=== PATIENT | female | born 1950 | race Caucasian/White ===

== ENCOUNTER 2019-12-12 07:10 | Outpatient (CLI) | payer OTHER, MEDICARE, SELFPAY ==
[2019-12-12 08:53] LABS: Basophils % 0.7 %; Eosinophils # 0.2 10^3/uL (0.0-0.8); Eosinophils % 4.6 %; Hematocrit 40.2 % (37.0-47.0); Hemoglobin 13.2 g/dL (11.5-15.3); Lymphocytes # 0.7 10^3/uL (0.8-4.8); Lymphocytes % 14.9 %; Mean Corpuscular HGB Conc 32.8 g/dL (30.0-36.0); Mean Corpuscular Hemoglobin 31.6 pg (28.0-34.0); Mean Corpuscular Volume 96.2 fL (81-99); Monocytes # 0.4 10^3/uL (0.2-0.9); Monocytes % 9.6 %; Neutrophils # 3.2 10^3/uL (1.8-7.7); Nucleated Red Blood Cells % 0 %; Platelet Count 163 10^3/cmm (130-400); Red Blood Count 4.18 10^6/uL (4.1-5.3); Red Cell Distribution Width 12.9 % (12.1-15.1); White Blood Count 4.6 10^3/uL (4.0-10.0)
[2019-12-12 09:19] LABS: Carcinoembryonic Antigen 0.6 ng/mL (0.0-4.7)
[2019-12-12 09:31] LABS: Alanine Aminotransferase 18 U/L (0-33); Albumin Level 4.1 g/dL (3.5-5.2); Alkaline Phosphatase 88 IU/L (35-105); Anion Gap 14.3 (5-19); Aspartate Amino Transferase 20 U/L (0-32); Blood Urea Nitrogen 14 mg/dL (8-23); Calcium 9.9 mg/dL (8.5-10.5); Carbon Dioxide 27 mmol/L (22-29); Chloride 103 mmol/L (98-107); Globulin 3.3 g/dL (1.3-4.6); Glomerular Filtration Rate 62.5 mL/min (90-130); Glucose 93 mg/dL (65-115); Potassium 4.3 mmol/L (3.5-5.1); Sodium 140 mmol/L (136-145); Total Bilirubin 0.6 mg/dL (0.15-1.2); Total Protein 7.4 g/dL (6.6-8.7)
[2019-12-12 09:54] LABS: Thyroid Stimulating Hormone 1.88 uIU/mL (0.27-4.20)
== END 2019-12-12 07:11 | disposition home or self-care (01) ==
LOC: ONCMED 07:16
PROVIDERS: Family Provider Nurse Practitioner; Visit Provider Internal Medicine Medical Oncology
DX: C20 Malignant neoplasm of rectum (principal); E03.9 Hypothyroidism, unspecified
CPT/HCPCS: 80053; 82378; 84443; 85025

== ENCOUNTER 2019-12-15 07:05 | Outpatient (CLI) | payer OTHER, MEDICARE, SELFPAY ==
--- NOTE | 2019-12-15 07:17 | CT_ITS ---
WS: [id number] CT CHEST, ABDOMEN, AND PELVIS TECHNIQUE: Noncontrast CT of the chest, abdomen, and pelvis with coronal and sagittal reformatted juliane ges. CLINICAL INFORMATION: RECTAL CANCER COMPARISON: CT chest abdomen pelvis December 12, 2018 DLP: 1439.[address] scans at [facility] use at least one of these dose optimization techniques: automat ed exposure control; mA and/or kV adjustment per patient size (includes targeted exams where dose is matched to clinical indication); or iterative reconstruction. CT CHEST: No mediastinal or hilar lymphadenopathy. No axillary lymphadenopathy. A few tiny noncalcified nodules in the lower lobes. These are unchanged from 2018. No acute pulmonary infiltrates. Normal visualized thoracic spine. CT ABDOMEN AND PELVIS: Prior postoperative changes perineal resection with left lower quadrant colostomy. Stable parastomal hernia. No evidence of obstruction. No evidence of recurrent or progressive disease. Noncontrast liver and gallbladder are normal. Noncontrast spleen is normal. Normal noncontrast pancre as. Adrenal glands are normal. Normal GE junction. No hydronephrosis. Normal caliber abdominal aorta. No periaortic lymphadenopathy. No pelvic or inguinal lymphadenopathy. CT/CT chest abd pel wo con IMPRESSION: 1. No evidence of metastatic disease in the chest abdomen or pelvis. 2. A few tiny noncalcified pulmonary nodules in the lung bases unchanged since 2018 3. Stable postoperative changes left lower quadrant colostomy with parastomal hernia. No evidence of obstruction. 4. Lungs are well aerated. No acute pulmonary infiltrates. 5. No mediastinal or hilar lymphadenopathy.
[2019-12-15] MEDS: iohexol 300 mg/mL 50 mL Btl PO (07:20)
== END 2019-12-15 07:06 | disposition home or self-care (01) ==
PROVIDERS: Family Provider Nurse Practitioner; PCP Nurse Practitioner; Visit Provider Internal Medicine Medical Oncology
DX: C20 Malignant neoplasm of rectum (principal); R91.8 Other nonspecific abnormal finding of lung field; Z93.3 Colostomy status
CPT/HCPCS: 71250; 74176; Q9967

== ENCOUNTER 2019-12-17 15:43 | Outpatient (CLI) | payer OTHER, MEDICARE, SELFPAY ==
--- NOTE | 2019-12-17 18:23 | ONC FU_ITS ---
Dr. Hanson Patient Follow-Up Note Patient: Eva Luciano Unit #: [id number]: 1950 Dicatated By: Barney Hanson M.D.Date of Visit:Dec 17, 2019 Onc Med Follow-up/Prog Note Chief Complaint: Rectal cancer. 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 She had presented initially with a change in bowel habit. This started with worsening of some pre-existing constipation. She then noticed appearance of blood and/or mucus in the stool intermittently. She underwent colonoscopy on 10/02/2014. She was found to have a large size, circumferential, malignant appearing mass in the rectum. It did not appear to be obstructing the lumen. The report indicated that it was located 15 cm from the anal verge, but Dr. Hutson indicated to me that it appeared to be extending down almost to the anal verge. Biopsy was consistent with low-grade (grade 2/4) infiltrating adenocarcinoma. CT abdomen/pelvis showed no definite colon mass. There was very minimal asymmetry of the rectum with the left rectal wall noted to be slightly more prominent than the right. There was no abnormal lymphadenopathy or other evidence of metastatic disease. She had seen Dr. Gerard in September 2014. He noted a left anterior anal canal mass in close proximity but not contiguous with a large dominant mass in the right anterior location. He did feel that the smaller lesion was probably a satellite. He also felt clinically that this was almost certainly a T3 primary lesion. He did recommend preoperative chemoradiation. After returning here she did complete additional staging with MRI of the pelvis. It was really unremarkable with no evidence of any mass or extension of tissue beyond the normal rectum. There were no abnormally enlarged lymph nodes. She also underwent an exam under anesthesia by Dr. Cross, which did show a satellite lesion extending into the anal canal, confirmed by biopsy to be well differentiated adenocarcinoma. By clinical evaluation her disease was felt to be stage IIA (T3, N0, M0). She was given neoadjuvant chemoradiation utilizing Xeloda for the chemosensitization. She completed treatment on 12/03/14. The total dose appears to have calculated to 5220 cGy. Her initial surgery, on 01/21/15, was limited to transanal excision, as it appeared clinically that she had responded very well to the chemoradiation. However, pathology showed a significant area of residual tumor measuring approximately 2 cm. Carcinoma was noted to extend through the muscularis propria and into the perirectal fat. There was a viable invasive carcinoma 0.6 mm from the proximal margin and 2 mm from the distal margin. Additional lateral margins were noted to be free, and the mesenteric margin was free by 1.4 mm. There was felt to be a moderate treatment response (tumor regression grade 1). Excisional biopsy from the anal canal showed no viable malignant cells. On 04/01/2015 she underwent AP resection. Pathology showed a single area of residual adenocarcinoma measuring 2 mm. There was involvement, though, in 2 of 11 lymph nodes. She was then given postoperative adjuvant chemotherapy with modified FOLFOX. Cycle 1 started on 05/25/15. By day 14 she was severely neutropenic, and she was treated with Neupogen. She had a rapid recovery, but cycle 2 was delayed as a result of that. With the second cycle, she did require a dose reduction in the oxaliplatin because of neuropathy. She again became neutropenic, and cycle 3 also was delayed 1 week. With cycle 4 she did receive an additional dose reduction in the oxaliplatin due to worsening neuropathy, and it was opted to drop the oxaliplatin beginning with cycle 7. Her cycle 8 treatment was delayed 1 week due to a significant drop in her platelet count. She received her final cycle of chemotherapy on 09/22/2015. She has since then been followed on observation/expectant management. She had negative surveillance colonoscopy with Dr. Gerard in 2016. Her medical history is otherwise significant for mitral valve prolapse. Her records indicated that she also had hyperlipidemia, but she has not been on any medication for it. During follow-up she has had evidence of mild hypothyroidism. She is a nonsmoker. INTERIM HISTORY: Surveillance CT scans of the chest, abdomen, and pelvis on 05/25/2017 showed no evidence of neoplastic process. She was noted to have a peristomal herniation of the sigmoid colon, but unchanged compared to the study from November 2016. Repeat surveillance CT scans on 11/26/2017 were stable with no evidence of metastatic or recurrent neoplastic process. Follow-up CT of the chest, abdomen, and pelvis without contrast (due to contrast allergy) on 06/12/2018 reported stable appearance of the chest with no new or enlarging pulmonary nodules and no adenopathy. The unenhanced imaging of the abdomen/pelvis was negative for adenopathy, ascites, or metastatic disease. 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 There was no evidence for metastatic disease to the chest, abdomen, or pelvis. She continued on observation/expectant management. Her surveillance CT scans on 12/15/2019 showed no evidence of metastatic disease in the chest, abdomen, or pelvis. A few tiny noncalcified pulmonary nodules in the lung bases appeared unchanged. Postoperative changes including left lower quadrant colostomy with parastomal hernia also appeared stable. She is seen for a follow-up visit. She has been feeling good generally. She continues to work full-time. She does feel tired in the evenings, but she has normal activity. Her appetite is good. She does have some degree of early satiety. She has gained a little weight. She does not have fever, night sweats, or hot flashes. She has sinus drainage and she occasionally has cough. She does not complain of shortness of breath or chest pain. She has no GI/ complaints other than occasional acid reflux. She has no significant joint or bone pain. She occasionally has headache and she occasionally feels lightheaded. She still has a little bit of numbness/tingling in her feet. Medications: Imodium A-D (2 mg) Tablet Oral PRN, Levothyroxine Sodium 1 Tablet (of 50 mcg) Oral daily, Propranolol HCl 1 (40 mg) Tablet Oral b.i.d. Allergies: Contrast Dye Review of Systems: Constitutional - Her energy is good. 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 She has normal activity. Her appetite is good and her weight is up since her last visit. No fever, chills, hot flashes, or night sweats. ECOG score is 0, ENMT - She has sinus congestion/drainage. No mouth sores. No sore throat or difficulty swallowing, Hematologic/Lymphatic - No abnormal bruising or bleeding, Respiratory - No shortness of breath. She has an occasional cough. No pleuritic pain or hemoptysis, Cardiovascular - No angina pain. No palpitations, Gastrointestinal - No nausea or vomiting. She has occasional heartburn, depending on what she eats. She has occasional loose stools. No blood in the stool or black stools, Genitourinary (F) - No dysuria or hematuria. No urinary frequency. No urgency or incontinence, Musculoskeletal - No joint or bone pain, Integumentary - No skin complications, Neurologic - She has occasional headaches. She sometimes gets dizzy. She has a little residual tingling in her feet, Psychiatric - No anxiety or depression. No insomnia. Vital Signs: Performed on Dec 17, 2019 15:53 Height - 66.00 in Weight - 175.6 lbs (HIGH) BSA - 1.89 sq.m BMI - 28.34 Temperature - 97.6 F (LOW) Pulse - 51 /min (LOW) Respiration - 16 /min BP - 134/70 mm(hg) O2 Sat - 98 % Pain - 0 Physical Examination: Constitutional - She looks good generally, Eyes - Sclerae nonicteric. Conjunctivae clear, ENMT - No lesions noted in the oral cavity, Hematologic/Lymphatic - No cervical, clavicular, or axillary adenopathy, Respiratory - Lungs are clear with good air movement bilaterally, Cardiovascular - Heart rhythm is regular. There is no murmur, gallop, or rub noted, Abdomen - Soft. Liver and spleen are not enlarged. There is no abdominal mass or ascites noted and there is no inguinal adenopathy, Extremities - No edema. Pedal pulses are palpable bilaterally, Neurologic - No focal neurologic deficits noted. Lab/Imaging: Test performed on Dec 12, 2019 08:31 Sodium 140 mmol/L TSH 1.88 uIU/mL Potassium 4.3 mmol/L Chloride 103 mmol/L CO2 27 mmol/L Anion Gap 14.3 BUN 14 mg/dL Creatinine 0.9 mg/dL Cr Clearance (Est) 69.5000 mL/min eGFR 62.5 mL/min Glucose 93 mg/dL Calcium 9.9 mg/dL Protein, Total 7.4 g/dL Albumin 4.1 g/dL Globulin 3.3 g/dL Bilirubin, Total 0.6 mg/dL ALT (SGPT) 18 U/L AST (SGOT) 20 U/L Alkaline Phosphatase 88 IU/L WBC 4.6 10 3/uL RBC 4.18 10 6/uL HGB 13.2 g/dL HCT 40.2 % MCV 96.2 fL MCH 31.6 pg MCHC 32.8 g/dL RDW 12.9 % Platelet Count 163 10 3/cmm MPV 10.0 fL Neutrophils 3.2 10 3/uL Lymphocytes 0.7 10 3/uL Monocytes 0.4 10 3/uL Eosinophils 0.2 10 3/uL Basophils 0.0 10 3/uL Neutrophil % 70.0 % Lymphocyte % 14.9 % Monocyte % 9.6 % Eosinophil % 4.6 % Basophils % 0.7 % CEA 0.6 ng/mL Impression: 1. Patient with grade 2/4 infiltrating adenocarcinoma of the rectum, clinically felt to be stage IIA (T3, N0, M0) at initial diagnosis in September 2014. However, there subsequently was biopsy proven satellite involvement in the anal canal. 2. She was given neoadjuvant chemoradiation utilizing Xeloda for the chemosensitization. Treatment was completed on 12/03/2014 to a total radiation dose of 5220 cGy. 3. Her initial surgery, in January 2016, included transanal excision, which did show significant residual tumor estimated at 2 cm. There was transmural invasion and involvement in 2/11 lymph nodes. She then underwent AP resection on 04/01/2015, with residual tumor estimated 2 mm. Final staging was IIIB (ypT3, ypN1, M0). She had a good recovery from the surgery. 4. She then underwent postoperative adjuvant chemotherapy with modified FOLFOX. As of September 2015 she completed 8 cycles of treatment. Toxicities included fatigue, nausea, diarrhea, neuropathy, and myelosuppression. The neuropathy was significant enough to require 2 dose reductions in the oxaliplatin, and I did omit it with cycles 7 and 8. She has been followed on observation/expectant management following completion of the chemotherapy. Her surveillance CT scans have shown evidence of peristomal herniation of a portion of sigmoid colon, but the appearance has been stable. She had a negative surveillance colonoscopy by Dr. Gerard in December 2018. Her current CT scans, from 12/15/2019, show stable findings with no evidence of metastatic disease in the chest, abdomen, or pelvis. During follow-up she has had some mild fatigue, but she has continued to work full-time. She has just mild residual neuropathy in her feet. Overall, she has been doing well clinically with no evidence of recurrence of the rectal cancer. Plan: She remains on observation/expectant management for the rectal cancer. She will be scheduled for a followup visit in 6 months. She will have surveillance CT scans again in 1 year. Signed By: Barney Hanson M.D. <<Signature on File>>
== END 2019-12-17 15:44 | disposition home or self-care (01) ==
LOC: ONCMED 15:43
PROVIDERS: Family Provider Nurse Practitioner; PCP Nurse Practitioner; Visit Provider Internal Medicine Medical Oncology
DX: Z08 Encounter for follow-up examination after completed treatment for malignant neoplasm (principal); Z85.048 Personal history of other malignant neoplasm of rectum, rectosigmoid junction, and anus; G62.0 Drug-induced polyneuropathy; T45.1X5S Adverse effect of antineoplastic and immunosuppressive drugs, sequela; Z92.21 Personal history of antineoplastic chemotherapy; Z92.3 Personal history of irradiation
CPT/HCPCS: G0463

== ENCOUNTER 2020-06-08 14:33 | Outpatient (CLI) | payer OTHER, MEDICARE, SELFPAY ==
--- NOTE | 2020-06-08 15:27 | MM_ITS ---
WS: [id number] BILATERAL SCREENING DIGITAL MAMMOGRAM WITH CAD HISTORY: SCREENING COMPARISON: 06/02/2019 and 05/17/2018 and 01/16/2017 Bilateral CC and MLO views submitted. Computer aided detection analyzed. Breast composition: There are scattered areas of fibroglandular density. No suspicious masses, microc alcifications or architectural distortion. Benign calcifications in each breast. Asymmetry superior L EFT breast has been stable over multiple prior examinations. MM/[id number] IMPRESSION: BI-RADS: 2-Benign FOLLOW UP: 1 Year Follow-up
== END 2020-06-08 14:34 | disposition home or self-care (01) ==
LOC: RADSHAW 14:40
PROVIDERS: PCP Nurse Practitioner; Visit Provider Nurse Practitioner
DX: Z12.31 Encounter for screening mammogram for malignant neoplasm of breast (principal)
CPT/HCPCS: 77067

== ENCOUNTER 2020-06-22 07:16 | Outpatient (CLI) | payer OTHER, MEDICARE, SELFPAY ==
[2020-06-22 07:55] LABS: Eosinophils # 0.5 10^3/uL (0.0-0.8); Eosinophils % 11.3 %; Hematocrit 40.6 % (37.0-47.0); Lymphocytes # 0.6 10^3/uL (0.8-4.8); Lymphocytes % 13.5 %; Mean Corpuscular Hemoglobin 30.4 pg (28.0-34.0); Mean Corpuscular Volume 94.9 fL (81-99); Mean Platelet Volume 10.1 fL (7.4-10.4); Monocytes # 0.3 10^3/uL (0.2-0.9); Monocytes % 7.9 %; Neutrophils # 2.75 10^3/uL (1.8-7.7); Neutrophils % 66.1 %; Nucleated Red Blood Cells % 0 %; Platelet Count 139 10^3/cmm (130-400); Red Blood Count 4.28 10^6/uL (4.1-5.3); Red Cell Distribution Width 13.2 % (12.1-15.1); White Blood Count 4.2 10^3/uL (4.0-10.0)
[2020-06-22 08:23] LABS: Carcinoembryonic Antigen 0.6 ng/mL (0.0-4.7); Thyroid Stimulating Hormone 2.36 uIU/mL (0.27-4.20)
[2020-06-22 08:34] LABS: Alanine Aminotransferase 24 U/L (0-33); Albumin Level 4.4 g/dL (3.5-5.2); Alkaline Phosphatase 88 IU/L (35-105); Anion Gap 18.3 (5-19); Aspartate Amino Transferase 21 U/L (0-32); Blood Urea Nitrogen 14 mg/dL (8-23); Calcium 9.1 mg/dL (8.5-10.5); Carbon Dioxide 21 mmol/L (22-29); Chloride 105 mmol/L (98-107); Globulin 2.9 g/dL (1.3-4.6); Glomerular Filtration Rate 62.5 mL/min (90-130); Glucose 111 mg/dL (65-115); Osmolality Calculated 287 mOsm/kg (285-295); Potassium 4.3 mmol/L (3.5-5.1); Sodium 140 mmol/L (136-145); Total Bilirubin 0.8 mg/dL (0.15-1.2); Total Protein 7.3 g/dL (6.6-8.7)
== END 2020-06-22 07:17 | disposition home or self-care (01) ==
LOC: ONCMED 07:19
PROVIDERS: PCP Nurse Practitioner; Visit Provider Internal Medicine Medical Oncology
DX: C20 Malignant neoplasm of rectum (principal); E03.9 Hypothyroidism, unspecified
CPT/HCPCS: 36415; 80053; 82378; 84443; 85025

== ENCOUNTER 2020-06-23 05:57 | Outpatient (CLI) | payer OTHER, MEDICARE, SELFPAY ==
--- NOTE | 2020-06-24 10:06 | ONC FU_ITS ---
[facility] Patient Note Patient: Eva Luciano Unit #: [id number]: 1950 Dictated By: Emelina ManriqueDate of Visit: Jun 23, 2020 Onc MED Follow-Up/Prog Note Chief Complaint: Rectal cancer. 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 She had presented initially with a change in bowel habit. This started with worsening of some pre-existing constipation. She then noticed appearance of blood and/or mucus in the stool intermittently. She underwent colonoscopy on 10/02/2014. She was found to have a large size, circumferential, malignant appearing mass in the rectum. It did not appear to be obstructing the lumen. The report indicated that it was located 15 cm from the anal verge, but Dr. Hutson indicated to me that it appeared to be extending down almost to the anal verge. Biopsy was consistent with low-grade (grade 2/4) infiltrating adenocarcinoma. CT abdomen/pelvis showed no definite colon mass. There was very minimal asymmetry of the rectum with the left rectal wall noted to be slightly more prominent than the right. There was no abnormal lymphadenopathy or other evidence of metastatic disease. She had seen Dr. Gerard in September 2014. He noted a left anterior anal canal mass in close proximity but not contiguous with a large dominant mass in the right anterior location. He did feel that the smaller lesion was probably a satellite. He also felt clinically that this was almost certainly a T3 primary lesion. He did recommend preoperative chemoradiation. After returning here she did complete additional staging with MRI of the pelvis. It was really unremarkable with no evidence of any mass or extension of tissue beyond the normal rectum. There were no abnormally enlarged lymph nodes. She also underwent an exam under anesthesia by Dr. Cross, which did show a satellite lesion extending into the anal canal, confirmed by biopsy to be well differentiated adenocarcinoma. By clinical evaluation her disease was felt to be stage IIA (T3, N0, M0). She was given neoadjuvant chemoradiation utilizing Xeloda for the chemosensitization. She completed treatment on 12/03/14. The total dose appears to have calculated to 5220 cGy. Her initial surgery, on 01/21/15, was limited to transanal excision, as it appeared clinically that she had responded very well to the chemoradiation. However, pathology showed a significant area of residual tumor measuring approximately 2 cm. Carcinoma was noted to extend through the muscularis propria and into the perirectal fat. There was a viable invasive carcinoma 0.6 mm from the proximal margin and 2 mm from the distal margin. Additional lateral margins were noted to be free, and the mesenteric margin was free by 1.4 mm. There was felt to be a moderate treatment response (tumor regression grade 1). Excisional biopsy from the anal canal showed no viable malignant cells. On 04/01/2015 she underwent AP resection. Pathology showed a single area of residual adenocarcinoma measuring 2 mm. There was involvement, though, in 2 of 11 lymph nodes. She was then given postoperative adjuvant chemotherapy with modified FOLFOX. Cycle 1 started on 05/25/15. By day 14 she was severely neutropenic, and she was treated with Neupogen. She had a rapid recovery, but cycle 2 was delayed as a result of that. With the second cycle, she did require a dose reduction in the oxaliplatin because of neuropathy. She again became neutropenic, and cycle 3 also was delayed 1 week. With cycle 4 she did receive an additional dose reduction in the oxaliplatin due to worsening neuropathy, and it was opted to drop the oxaliplatin beginning with cycle 7. Her cycle 8 treatment was delayed 1 week due to a significant drop in her platelet count. She received her final cycle of chemotherapy on 09/22/2015. She has since then been followed on observation/expectant management. She had negative surveillance colonoscopy with Dr. Gerard in 2016. Her medical history is otherwise significant for mitral valve prolapse. Her records indicated that she also had hyperlipidemia, but she has not been on any medication for it. During follow-up she has had evidence of mild hypothyroidism. She is a nonsmoker. INTERIM HISTORY: Surveillance CT scans of the chest, abdomen, and pelvis on 05/25/2017 showed no evidence of neoplastic process. She was noted to have a peristomal herniation of the sigmoid colon, but unchanged compared to the study from November 2016. Repeat surveillance CT scans on 11/26/2017 were stable with no evidence of metastatic or recurrent neoplastic process. Follow-up CT of the chest, abdomen, and pelvis without contrast (due to contrast allergy) on 06/12/2018 reported stable appearance of the chest with no new or enlarging pulmonary nodules and no adenopathy. The unenhanced imaging of the abdomen/pelvis was negative for adenopathy, ascites, or metastatic disease. 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 There was no evidence for metastatic disease to the chest, abdomen, or pelvis. She continued on observation/expectant management. Her surveillance CT scans on 12/15/2019 showed no evidence of metastatic disease in the chest, abdomen, or pelvis. A few tiny noncalcified pulmonary nodules in the lung bases appeared unchanged. Postoperative changes including left lower quadrant colostomy with parastomal hernia also appeared stable. Ms. Luciano is here today for follow-up. She states she is doing well overall. She is working full-time and tolerates this well. She states she is tired at night and does not do much at home but has no specific complaints. She denies any shortness of breath orthopnea. She denies any chest pain or palpitations. She denies any changes of bowel function. She states her ostomy still is working well. She denies any new pain. She states she has had some intermittent dry skin which presented like circles that looked almost like ringworm when it would dry out . This is essentially resolved using lotion more frequently. She developed 2 spots on her left hand that discounted came out . She states that they are not itchy. She is not sure if they are recent bug bites. They are not draining nor do they look infected. She states she has had some dryness around her eyes especially like in the corner of her eyes. She did talk to her eye doctor regarding this. He advised her to use vitamin E oil sparingly to those areas around her eyes. She has been doing this and states that she does believe it is helping. She states otherwise she is doing well. Her ECOG is 0. Past Medical History: Mitral valve prolapse Past Surgical History: Removal of right subclavian venous access device-Dr Cross [facility] [place] in 2014 Right subclavian venous access device-Dr Chriss Cross in 2014 AP resection with colostomy-MASSIEL Frazier in 2014 in 1978 Allergies: Contrast Dye Medications: Imodium A-D (2 mg) Tablet Oral PRN Levothyroxine Sodium 1 Tablet (of 50 mcg) Oral daily Propranolol HCl 1 (40 mg) Tablet Oral b.i.d. Family History: Ms. Luciano's mother at age 65: medical history includes emphysema/colon cancer at age 65 (cause of ). Ms. Luciano's father at age 73: medical history includes congestive heart failure at age 73 (cause of ). Ms. Luciano has 2 sisters: 2 alive. Father of congestive heart failure at age 73. Her mother had severe emphysema and colon cancer. She age 65. She has 2 sisters who are still living. One has rheumatoid arthritis. Two maternal aunts and a cousin on her mother side all had breast cancer and are . 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 Ms. Luciano has never smoked. She has no history of drinking. Review Of Symptoms: Constitutional Denies fevers, chills, night sweats, excessive fatigue or weight loss. Allergic/Immunologic No reactions. Eyes Denies significant visual changes. No diplopia. No amaurosis. ENMT Denies changes in hearing, sore throat, mouth sores, difficulty or changes in swallowing ability, and/or sinus drainage. Endocrine No diabetes, thyroid disease or hormone replacement. Denies hot flashes. Hematologic/Lymphatic Denies easy bruising or bleeding. The patient denies any tender or palpable lymph nodes. Respiratory Denies dyspnea on exertion, chest pain, cough or hemoptysis. Denies orthopnea. Cardiovascular Denies anginal chest pain, palpitations or orthopnea. Gastrointestinal Denies nausea, vomiting, diarrhea, GI bleeding, or constipation. Denies change in bowel habits and/or stool color, no heartburn or early satiety. No concerns with ostomy. Genitourinary (F) No hematuria, hesitancy, incontinence, vaginal bleeding, discharge or other problems with urination. Musculoskeletal Denies joint pain, swelling or redness. No decreased range of motion. Integumentary Denies chronic rashes, inflammation, ulcerations. She has had some intermittent dry skin patches. Has 2 new areas on her left hand that are of unknown etiology. They are red with a yellow center, but do not itch or burn. No drainage. Neurologic Denies headache, blurred vision, and no areas of focal weakness or numbness. Normal gait. No sensory problems. Psychiatric Denies insomnia, depression, cristian or mood swings. Vital Signs: Performed on Jun 23, 2020 15:21 Height - 66.00 in Weight - 175.6 lbs BSA - 1.89 sq.m BMI - 28.34 Temperature - 97.6 F (LOW) Pulse - 44 /min (LOW) Respiration - 16 /min BP - 124/61 mm(hg) O2 Sat - 100 % Pain - 0,0 - Fully active, able to carry on all predisease activities without restrictions. (ECOG) Physical Examination: Constitutional Alert, oriented, no acute distress. Skin pink, warm and dry. Head Normocephalic; atraumatic. Eyes Conjunctivae and sclerae are clear and without icterus. Pupils are reactive and equal. Neck Supple without masses or thyromegaly. No jugular venous distension. Hematologic/Lymphatic No petechiae or purpura. Respiratory Lungs are clear to auscultation without rhonchi or wheezing. Cardiovascular Regular rate and rhythm of heart without murmurs,clicks, gallops or rubs. Abdomen Non-tender, non-distended, no masses, ascites or hepatosplenomegaly.Good bowel sounds noted in all quads. No guarding or rebound tenderness. No pulsatile masses. Left sided ostomy unremarkable. Back/Spine Non-tender to palpation. Extremities No visible deformities, no cyanosis, clubbing or edema. Musculoskeletal No tenderness or swelling, normal range of motion without obvious weakness. Neurologic No sensory or motor deficits, normal cerebellar function, normal gait. Psychiatric Alert and oriented times three. Coherent speech. Verbalizes understanding of our discussions today. Laboratory:Test performed on Jun 22, 2020 07:42 WBC 4.2 10 3/uL RBC 4.28 10 6/uL HGB 13.0 g/dL HCT 40.6 % MCV 94.9 fL MCH 30.4 pg MCHC 32.0 g/dL RDW 13.2 % Platelet Count 139 10 3/cmm MPV 10.1 fL Neutrophils 2.75 10 3/uL Lymphocytes 0.6 10 3/uL Monocytes 0.3 10 3/uL Eosinophils 0.5 10 3/uL Basophils 0.0 10 3/uL Neutrophil % 66.1 % Lymphocyte % 13.5 % Monocyte % 7.9 % Eosinophil % 11.3 % Basophils % 1.0 % NRBC % 0 % Impression: 1. Patient with grade 2/4 infiltrating adenocarcinoma of the rectum, clinically felt to be stage IIA (T3, N0, M0) at initial diagnosis in September 2014. However, there subsequently was biopsy proven satellite involvement in the anal canal. 2. She was given neoadjuvant chemoradiation utilizing Xeloda for the chemosensitization. Treatment was completed on 12/03/2014 to a total radiation dose of 5220 cGy. 3. Her initial surgery, in January 2016, included transanal excision, which did show significant residual tumor estimated at 2 cm. There was transmural invasion and involvement in 2/11 lymph nodes. She then underwent AP resection on 04/01/2015, with residual tumor estimated 2 mm. Final staging was IIIB (ypT3, ypN1, M0). She had a good recovery from the surgery. 4. She then underwent postoperative adjuvant chemotherapy with modified FOLFOX. As of September 2015 she completed 8 cycles of treatment. Toxicities included fatigue, nausea, diarrhea, neuropathy, and myelosuppression. The neuropathy was significant enough to require 2 dose reductions in the oxaliplatin, and I did omit it with cycles 7 and 8. She has been followed on observation/expectant management following completion of the chemotherapy. Her surveillance CT scans have shown evidence of peristomal herniation of a portion of sigmoid colon, but the appearance has been stable. She had a negative surveillance colonoscopy by Dr. Gerard in December 2018. Her current CT scans, from 12/15/2019, show stable findings with no evidence of metastatic disease in the chest, abdomen, or pelvis. During follow-up she has had some mild fatigue, but she has continued to work full-time. She has just mild residual neuropathy in her feet. Overall, she has been doing well clinically with no evidence of recurrence of the rectal cancer. Plan: 1. She remains on observation/expectant management for the rectal cancer. 2. Labs karina 06/22/2020 were reviewed in detail and discussed with Ms. Luciano and a copy was given to her. WBC 4.2, hemoglobin 13, platelets 239,000 ANC is 2700. Creatinine 0.9 random glucose 111 LFTs are normal. CEA is 0.6 and TSH is 2.36. 3. She was encouraged to continue using lotion as she has for dry skin patches. As far as the lesions on her hand she can try cortisone or Benadryl cream as needed if this does not resolve or that they seem to worsen she can call and we can either send her in a steroid cream or an antibiotic whichever seems to be appropriate depending on her concern. I did offer to have her see dermatology if she feels that she needs it due to the other lesions as well but she states right now she thinks she is doing fine. She is encouraged to call us if she feels that she needs to see the asphalt mixing machine operator to make make that referral. 4. She is planning a trip [place] to see her sister and is excited about this. She will proceed with that trip as scheduled with normal COVID precautions. 5. We will plan to see her back in 6 months with CBC CMP CEA she also have repeat noncontrast CT of the chest abdomen pelvis for her 6-month follow-up. 6. She is advised she can try vitamin E or fish oil for dry skin as well if she needs to. She is drinking an adequate amount of water daily as well. 7. Mrs. Luciano was instructed to contact us in interim should questions or problems arise. ADDENDUM: 8. She has had recent mammography screening per ARMANDO Cruz,. Her bilateral screening mammogram was performed at [facility] [place] on June 08, 2020. Results were BI-RADS: 2???benign follow-up in 1 year. 9. She states that she is due for her follow-up colonoscopy in 2021. She is on her 3-year surveillance plan currently. Signed By: Emelina Manrique-, AOJACKP Barney Hanson MD <<Signature on File>>
== END 2020-06-23 05:58 | disposition home or self-care (01) ==
PROVIDERS: Visit Provider Nurse Practitioner
DX: Z08 Encounter for follow-up examination after completed treatment for malignant neoplasm (principal); Z85.048 Personal history of other malignant neoplasm of rectum, rectosigmoid junction, and anus; Z92.21 Personal history of antineoplastic chemotherapy; Z92.3 Personal history of irradiation
CPT/HCPCS: G0463

== ENCOUNTER 2020-06-29 14:06 | Outpatient (CLI) | payer OTHER, MEDICARE, SELFPAY ==
--- NOTE | 2020-06-29 14:28 | XR_ITS ---
WS: [id number] DEXA (DUAL ENERGY X-RAY ABSORPTIOMETRY) Bone mineral density was performed using a [employer] machine. HISTORY: Asymptomatic MENOPAUSAL STATE COMPARISON: 05/27/2018 Lumbar spine BMD (L1-L4): 1.214 g/cm2 T score: 0.3 Z score: 1.5 Total hip BMD: Left: 1.106 g/cm2. T score: 0.8 Z score: 1.8 Right: 1.135 g/cm2. T score: 1.0 Z score: 2.0 10 year probability of a major osteoporotic fracture is 7%. Compared to the prior study from 05/27/2018. Lumbar spine bone mineral density has decreased by 1.1%. Bilateral hips bone mineral density has increased by 1.4%. XR/XR DEXA axial skeleton* [id number] IMPRESSION: NORMAL BONE MINERAL DENSITY based upon the WHO classification for females. No s ignificant change in bone mineral density since the prior study.
== END 2020-06-29 14:07 | disposition home or self-care (01) ==
LOC: RADWPI 14:12
PROVIDERS: PCP Nurse Practitioner; Visit Provider Nurse Practitioner
DX: Z78.0 Asymptomatic menopausal state (principal)
CPT/HCPCS: 77080

== ENCOUNTER 2020-11-24 07:59 | Outpatient (CLI) | payer OTHER, MEDICARE, SELFPAY ==
--- NOTE | 2020-11-24 08:00 | CT_ITS ---
WS: [id number] CT CHEST, ABDOMEN, AND PELVIS TECHNIQUE: Noncontrast CT of the chest, abdomen, and pelvis with coronal and sagittal reformatted juliane ges. CLINICAL INFORMATION: MALIGNANT NEOPLASM OF THE RECTUM COMPARISON: Multiple prior CTs including December 15, 2019, 2018, May 2018, November 2017, May 2017. DLP: 2210.[address] scans at [facility] use at least one of these dose optimization techniques: automat ed exposure control; mA and/or kV adjustment per patient size (includes targeted exams where dose is matched to clinical indication); or iterative reconstruction. CT CHEST: Both lungs are well aerated. No acute pulmonary infiltrates. Subsegmental atelectasis the lung bases. No mediastinal or hilar lymphadenopathy. No axillary lymphadenopathy. A few tiny noncalcified nodule s in the lower lobes. These are unchanged from 2018. Normal visualized thoracic spine. No evidence of metastatic disease. CT ABDOMEN AND PELVIS: Prior postoperative changes perineal resection for rectal cancer with left lower quadrant colostomy. Stable parastomal hernia. No evidence of obstruction. No evidence of recurrent or progressive disease. Noncontrast liver and gallbladder are normal. Noncon trast spleen is normal. Normal noncontrast pancreas. Adrenal glands are normal. Normal GE junction. N o hydronephrosis. Normal caliber abdominal aorta. No periaortic lymphadenopathy. No pelvic or inguina l lymphadenopathy. Normal lumbar spine. CT/CT chest abd pel wo con IMPRESSION: 1. No evidence of metastatic disease in the chest abdomen or pelvis. 2. A few tiny noncalcified pulmonary nodules in the lung bases are unchanged. 3. Lungs well aerated. No acute pulmonary infiltrates. No mediastinal or hilar lymphadenopathy. 4. Stable postoperative changes left lower quadrant colostomy with parastomal hernia. No evidence of obstruction. No changes from previous.
[2020-11-24] MEDS: iohexol 300 mg/mL 50 mL Btl PO (08:52)
== END 2020-11-24 08:00 | disposition home or self-care (01) ==
LOC: RADWPI 08:07
PROVIDERS: PCP Nurse Practitioner; Visit Provider Nurse Practitioner
DX: C20 Malignant neoplasm of rectum (principal); R91.8 Other nonspecific abnormal finding of lung field
CPT/HCPCS: 71250; 74176; Q9967

== ENCOUNTER 2020-11-25 07:10 | Outpatient (CLI) | payer OTHER, MEDICARE, SELFPAY ==
[2020-11-25 08:37] LABS: Basophils % 0.8 %; Eosinophils # 0.1 10^3/uL (0.0-0.8); Eosinophils % 3.6 %; Hematocrit 39.3 % (37.0-47.0); Hemoglobin 12.9 g/dL (11.5-15.3); Lymphocytes # 0.5 10^3/uL (0.8-4.8); Lymphocytes % 14.4 %; Mean Corpuscular HGB Conc 32.8 g/dL (30.0-36.0); Mean Corpuscular Hemoglobin 30.7 pg (28.0-34.0); Mean Corpuscular Volume 93.6 fL (81-99); Mean Platelet Volume 10.6 fL (7.4-10.4); Monocytes # 0.3 10^3/uL (0.2-0.9); Monocytes % 7.5 %; Neutrophils # 2.65 10^3/uL (1.8-7.7); Neutrophils % 73.4 %; Nucleated Red Blood Cells % 0 %; Platelet Count 146 10^3/cmm (130-400); Red Cell Distribution Width 12.9 % (12.1-15.1); White Blood Count 3.6 10^3/uL (4.0-10.0)
[2020-11-25 09:05] LABS: Alanine Aminotransferase 19 U/L (0-33); Albumin Level 4.2 g/dL (3.5-5.2); Alkaline Phosphatase 98 IU/L (35-105); Anion Gap 11.6 (5-19); Aspartate Amino Transferase 19 U/L (0-32); Blood Urea Nitrogen 15 mg/dL (8-23); Calcium 9.4 mg/dL (8.5-10.5); Carbon Dioxide 29 mmol/L (22-29); Chloride 102 mmol/L (98-107); Glomerular Filtration Rate 71.3 mL/min (90-130); Glucose 93 mg/dL (65-115); Osmolality Calculated 289 mOsm/kg (285-295); Potassium 3.6 mmol/L (3.5-5.1); Sodium 139 mmol/L (136-145); Total Bilirubin 0.6 mg/dL (0.15-1.2); Total Protein 7.2 g/dL (6.6-8.7)
[2020-11-25 11:45] LABS: Carcinoembryonic Antigen 0.7 ng/mL (0.0-4.7)
--- NOTE | 2020-11-27 18:14 | ONC FU_ITS ---
Dr. Hanson Patient Follow-Up Note Patient: Eva Luciano Unit #: [id number]: 1950 Dicatated By: Barney Hanson M.D.Date of Visit:Nov 25, 2020 Onc Med Follow-up/Prog Note Chief Complaint: Rectal cancer. 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 She had presented initially with a change in bowel habit. This started with worsening of some pre-existing constipation. She then noticed appearance of blood and/or mucus in the stool intermittently. She underwent colonoscopy on 10/02/2014. She was found to have a large size, circumferential, malignant appearing mass in the rectum. It did not appear to be obstructing the lumen. The report indicated that it was located 15 cm from the anal verge, but Dr. Hutson indicated to me that it appeared to be extending down almost to the anal verge. Biopsy was consistent with low-grade (grade 2/4) infiltrating adenocarcinoma. CT abdomen/pelvis showed no definite colon mass. There was very minimal asymmetry of the rectum with the left rectal wall noted to be slightly more prominent than the right. There was no abnormal lymphadenopathy or other evidence of metastatic disease. She had seen Dr. Gerard in September 2014. He noted a left anterior anal canal mass in close proximity but not contiguous with a large dominant mass in the right anterior location. He did feel that the smaller lesion was probably a satellite. He also felt clinically that this was almost certainly a T3 primary lesion. He did recommend preoperative chemoradiation. After returning here she did complete additional staging with MRI of the pelvis. It was really unremarkable with no evidence of any mass or extension of tissue beyond the normal rectum. There were no abnormally enlarged lymph nodes. She also underwent an exam under anesthesia by Dr. Cross, which did show a satellite lesion extending into the anal canal, confirmed by biopsy to be well differentiated adenocarcinoma. By clinical evaluation her disease was felt to be stage IIA (T3, N0, M0). She was given neoadjuvant chemoradiation utilizing Xeloda for the chemosensitization. She completed treatment on 12/03/14. The total dose appears to have calculated to 5220 cGy. Her initial surgery, on 01/21/15, was limited to transanal excision, as it appeared clinically that she had responded very well to the chemoradiation. However, pathology showed a significant area of residual tumor measuring approximately 2 cm. Carcinoma was noted to extend through the muscularis propria and into the perirectal fat. There was a viable invasive carcinoma 0.6 mm from the proximal margin and 2 mm from the distal margin. Additional lateral margins were noted to be free, and the mesenteric margin was free by 1.4 mm. There was felt to be a moderate treatment response (tumor regression grade 1). Excisional biopsy from the anal canal showed no viable malignant cells. On 04/01/2015 she underwent AP resection. Pathology showed a single area of residual adenocarcinoma measuring 2 mm. There was involvement, though, in 2 of 11 lymph nodes. She was then given postoperative adjuvant chemotherapy with modified FOLFOX. Cycle 1 started on 05/25/15. By day 14 she was severely neutropenic, and she was treated with Neupogen. She had a rapid recovery, but cycle 2 was delayed as a result of that. With the second cycle, she did require a dose reduction in the oxaliplatin because of neuropathy. She again became neutropenic, and cycle 3 also was delayed 1 week. With cycle 4 she did receive an additional dose reduction in the oxaliplatin due to worsening neuropathy, and it was opted to drop the oxaliplatin beginning with cycle 7. Her cycle 8 treatment was delayed 1 week due to a significant drop in her platelet count. She received her final cycle of chemotherapy on 09/22/2015. She was then followed on observation/expectant management. She had negative surveillance colonoscopy with Dr. Gerard in 2015. During subsequent follow-up there was no evidence of recurrent or metastatic disease on her yearly surveillance CT scans in 2016, 2017, 2018, and 2019. She had a negative surveillance colonoscopy again in December 2018. Her medical history is otherwise significant for mitral valve prolapse. Her records indicated that she also had hyperlipidemia, but she has not been on any medication for it. During follow-up she has had evidence of mild hypothyroidism. She is a nonsmoker. INTERIM HISTORY: Surveillance CT scans on 11/24/2020 showed no evidence of metastatic disease in the chest, abdomen, or pelvis. A few tiny noncalcified pulmonary nodules in the lung bases appeared unchanged. She is seen for a follow-up visit. She has been feeling good generally. She says she is still tired by the end of the day, but she has normal activity. Appetite is good. She has not had fever or night sweats. She has occasional hot flashes. She has no shortness of breath, cough, or chest pain. She still has occasional diarrhea. She has no other GI or complaints. She has no significant joint or bone pain. She has a little residual neuropathy in her feet. Medications: Imodium A-D (2 mg) Tablet Oral PRN, Levothyroxine Sodium 1 Tablet (of 50 mcg) Oral daily, Propranolol HCl 1 (40 mg) Tablet Oral b.i.d. Allergies: Contrast Dye Vital Signs: Performed on Nov 25, 2020 15:03 Height - 66.00 in Weight - 179 lbs (HIGH) BSA - 1.91 sq.m BMI - 28.89 Temperature - 97.2 F (LOW) Pulse - 54 /min (LOW) Respiration - 16 /min BP - 134/72 mm(hg) O2 Sat - 96 % Pain - 0 Physical Examination: Constitutional - She looks good generally, Eyes - Sclerae nonicteric. Conjunctivae clear, ENMT - No lesions noted in the oral cavity, Hematologic/Lymphatic - No cervical, clavicular, or axillary adenopathy, Respiratory - Lungs are clear with good air movement bilaterally, Cardiovascular - Heart rhythm is regular. There is no murmur, gallop, or rub noted, Abdomen - Soft. Liver and spleen are not enlarged. There is no abdominal mass or ascites noted and there is no inguinal adenopathy, Extremities - No edema, Neurologic - No focal neurologic deficits noted. Lab/Imaging: Test performed on Nov 25, 2020 07:22 Sodium 139 mmol/L TSH 2.50 uIU/mL Potassium 3.6 mmol/L Chloride 102 mmol/L CO2 29 mmol/L Anion Gap 11.6 BUN 15 mg/dL Creatinine 0.8 mg/dL Cr Clearance (Est) 86.27 mL/min eGFR 71.3 mL/min Glucose 93 mg/dL Osmolality - Calculated 289 mOsm/kg Calcium 9.4 mg/dL Protein, Total 7.2 g/dL Albumin 4.2 g/dL Globulin 3.0 g/dL Bilirubin, Total 0.6 mg/dL ALT (SGPT) 19 U/L AST (SGOT) 19 U/L Alkaline Phosphatase 98 IU/L WBC 3.6 10 3/uL RBC 4.20 10 6/uL HGB 12.9 g/dL HCT 39.3 % MCV 93.6 fL MCH 30.7 pg MCHC 32.8 g/dL RDW 12.9 % Platelet Count 146 10 3/cmm MPV 10.6 fL Neutrophils 2.65 10 3/uL Lymphocytes 0.5 10 3/uL Monocytes 0.3 10 3/uL Eosinophils 0.1 10 3/uL Basophils 0.0 10 3/uL Neutrophil % 73.4 % Lymphocyte % 14.4 % Monocyte % 7.5 % Eosinophil % 3.6 % Basophils % 0.8 % NRBC % 0 % CEA 0.7 ng/mL Problem List: 1. Grade 2/4 infiltrating adenocarcinoma of the rectum, clinically felt to be stage IIA (T3, N0, M0) at initial diagnosis in September 2014. However, there subsequently was biopsy proven satellite involvement in the anal canal. 2. Hyperlipidemia, not requiring medication. 3. Hypothyroidism. Problems Addressed with this Encounter and Plan: Grade 2/4 infiltrating adenocarcinoma of the rectum, clinically felt to be stage IIA (T3, N0, M0) at initial diagnosis in September 2014. However, there subsequently was biopsy proven satellite involvement in the anal canal. She was given neoadjuvant chemoradiation utilizing Xeloda for the chemosensitization. Treatment was completed on 12/03/2014 to a total radiation dose of 5220 cGy. Her transanal excision in January 2015 showed significant residual tumor estimated at 2 cm. There was transmural invasion and involvement in 2/11 lymph nodes. She then underwent AP resection on 04/01/2015, with residual tumor estimated 2 mm. Final staging was IIIB (ypT3, ypN1, M0). She had a good recovery from the surgery. She then underwent postoperative adjuvant chemotherapy with modified FOLFOX. As of September 2015 she completed 8 cycles of treatment. Toxicities included fatigue, nausea, diarrhea, neuropathy, and myelosuppression. The neuropathy was significant enough to require 2 dose reductions in the oxaliplatin, and it was omitted with cycles 7 and 8. She has since then been followed on observation/expectant management. Her follow-up has included negative surveillance colonoscopies in 2015 and in December 2018 and there also has been no evidence of metastatic disease on yearly surveillance CT scans. At this point she has some mild residual fatigue and mild residual neuropathy. Overall, she appears to be doing well clinically. She is now 5 years out from completion of treatment with no evidence of recurrence. She will continue her regular follow-up with De[facility] Fam. She should have surveillance colonoscopy again next year, then at a 5-year interval. She should not require any further routine surveillance CT scans. I will plan to see her again only as needed. Signed By: Barney Hanson M.D. <<Signature on File>>
== END 2020-11-25 07:11 | disposition home or self-care (01) ==
LOC: ONCMED 07:15
PROVIDERS: PCP Nurse Practitioner; Visit Provider Internal Medicine Medical Oncology
DX: Z08 Encounter for follow-up examination after completed treatment for malignant neoplasm (principal); Z85.040 Personal history of malignant carcinoid tumor of rectum; E78.5 Hyperlipidemia, unspecified; E03.9 Hypothyroidism, unspecified; Z92.21 Personal history of antineoplastic chemotherapy; Z79.899 Other long term (current) drug therapy
CPT/HCPCS: 36415; 80053; 82378; 84443; 85025; 99214

== ENCOUNTER 2021-07-12 14:39 | Outpatient (CLI) | payer OTHER, MEDICARE, SELFPAY ==
--- NOTE | 2021-07-12 15:02 | MM_ITS ---
WS: [id number] BILATERAL SCREENING DIGITAL MAMMOGRAM WITH CAD HISTORY: SCREENING COMPARISON: 06/08/2020 and 06/02/2019 Bilateral CC and MLO views submitted. Computer aided detection analyzed. Breast composition: There are scattered areas of fibroglandular density. No suspicious masses, microc alcifications or architectural distortion. Benign calcifications in each breast. MM/[id number] IMPRESSION: BI-RADS: 2-Benign FOLLOW UP: 1 Year Follow-up
== END 2021-07-12 14:40 | disposition home or self-care (01) ==
LOC: RADSHAW 14:48
PROVIDERS: PCP Nurse Practitioner; Visit Provider Nurse Practitioner
DX: Z12.31 Encounter for screening mammogram for malignant neoplasm of breast (principal)
CPT/HCPCS: 77067

== ENCOUNTER 2022-06-27 12:25 | Emergency (ER) | payer OTHER, MEDICARE, SELFPAY ==
[2022-06-27 12:31] VITALS: BP 137/70; PULSE 67; RESP 14; TEMP 36.8; O2SAT 96
--- NOTE | 2022-06-27 12:46 | ED_ITS ---
HPI - Abdominal Pain General: Chief Complaint: Abdominal Pain Stated Complaint: urinating blood Time Seen by Provider: 06/27/22 12:40 Source: patient Mode of arrival: ambulatory History of Present Illness: 71-year-old female with history of rectal CA presents to the emergency room with complaints of painless hematochezia from the colostomy. Began overnight she has had moderate amounts of blood in the colonoscopy bag. Mild abdominal cramping no sharp pain. She denies any dysuria urgency or frequency. She is currently thought to be in remission she is no longer receiving any active treatment she is actually due to have a colonoscopy soon. She is not on any anticoagulants. This initially began with diarrhea and then developed into gross hematochezia. MD elicited complaint: abdominal pain Pertinent past history: other (Colorectal CA) Onset (ago): hour(s) Pain Consistency: intermittent Location: Diffuse Severity: mild Quality: cramping Radiation: none Exacerbating factors: bowel movement Relieving factors: nothing Associated Symptoms: Reports bloating, change in stool character, GI cramping, diarrhea, hematochezia, nausea and poor appetite; Denies anorexia, belching, change in bowel habits, chills, coffee ground emesis, constipation, dyspepsia, dysuria, excessive flatus, fever(s), heartburn, hematuria, hematemesis, fecal incontinence, loose stools, melena, syncope and vomiting Review of Systems Const: Denies: fever(s), chills, fatigue or malaise ENMT: Denies: throat pain, ear or mastoid pain, nasal discharge or nasal congestion Card: Denies: chest pain, palpitations, irregular heart rhythm, edema or syncope Resp: Denies: dyspnea, productive cough or non-productive cough GI: Reports: abdominal pain, nausea, diarrhea, bloating, GI cramping, change in stool character and hematochezia; Denies: vomiting, hematemesis, coffee ground emesis, heartburn, constipation, belching, excessive flatus, fecal incontinence, change in bowel habits or melena : Denies: flank pain, difficulty voiding, dysuria, urinary frequency, urinary urgency or hematuria Skin/Breast: Denies: rash or pruritus PFSH ED PFSH: Medical History Colorectal cancer Hypothyroid Social History Smoking and tobacco status: never smoked Alcohol intake: never Physical Exam Const: GENERAL APPEARANCE: cooperative and comfortable ORIENTA TION/CONSCIOUSNESS: Yes awake, Yes oriented to person, Yes oriented to place and Yes oriented to time HENMT: COMMON NORMALS: normocephalic, atraumatic and hearing grossly normal bilaterally HEAD & SCALP: normocephalic and atraumatic Lymph: LYMPHATIC: no lymphadenopathy noted and no lymphedema noted Resp: COMMON NORMALS: normal respiratory effort, No retractions, No use of accessory muscles and clear to auscultation bilaterally AUSCULTATION: clear to auscultation bilaterally Cardio: COMMON NORMALS: regular rate, regular rhythm and No murmurs present (Cardio) RATE: regular rate RHYTHM: regular rhythm GI: COMMON NORMALS: No hepatosplenomegaly present AUSCULTATION: Yes normoactive bowel sounds PALPATION: Yes Tenderness to palpation present (GI) (Left side abdomen no guarding or rebound), No Guarding due to palpation present (GI) and Yes No hepatosplenomegaly present OTHER: Parastomal herniation easily reduced. There is moderate amount of blood in the colostomy bag. Extremity: COMMON NORMALS: normal to inspection, capillary refill normal, no clubbing, cyanosis or edema, no calf tenderness and no pedal edema Neuro: SENSORIUM/ORIENTATION: Yes oriented to person, Yes oriented to place a nd Yes oriented to time Skin: COMMON NORMALS: no rashes or lesions noted GENERAL SKIN EXAM: no rashes or lesions noted Course Vital Signs: Vital signs: Vital Signs Temperature 98.3 F 06/27/22 12:31 Pulse Rate 60 06/27/22 15:14 Respiratory Rate 18 06/27/22 15:14 Blood Pressure 138/67 06/27/22 15:14 Pulse Oximetry 97 06/27/22 15:14 Oxygen Delivery Me thod 06/27/22 12:31 MDM - Abdominal Pain Medical Decision Making Labs and imaging reviewed. There is diffuse inflammatory stranding around the colon suspected for his colitis. Is not having significant abdominal pain suspect it is infectious. Started on antibiotics follow-up with primary care hemoglobin is good should recheck hemoglobin within next 2 days with primary care if has significant worsening return to the emergency room. Medical Records I reviewed the patient's medical records. Lab Data I reviewed the patient's lab results. : 06/27/22 13:00 06/27/22 13:00 Labs/Radiology: Radiology Impressions Abdomen/Pelvis CT 06/27/22 12:47 IMPRESSION: 1. Diffuse transmural edema with surrounding inflammatory stranding and sub mucosal enhancement involving the LEFT lower quadrant colonic parastomal hernia. No evidence of high-grade obstruction at the distal colostomy. Findings suspicious for infectious/ inflammatory or ischemic colitis. No pneumatosis or free air. 2. The configuration of the LEFT lower quadrant colostomy with parastomal hernia is otherwise unchanged in appearance since November 24, 2020 3. Normal caliber abdominal aorta. Celiac, SMA and proximal SONIA are patent. 4. Diffuse fatty infiltration liver. 5. No other remarkable changes compared to previous examinations. Discussed with Mook Tan DO at 06/27/2022 2:43 PM. Laboratory Results WBC 8.4 10^3/uL (4.0-10.0) 06/27/22 13:00 RBC 4.48 10^6/uL (4.1-5.3) 06/27/22 13:00 Hgb 14.0 g/dL (11.5-15.3) 06/27/22 13:00 Hct 41.9 % (37.0-47.0) 06/27/22 13:00 MCV 93.5 fl (81-99) 06/27/22 13:00 MCH 31.3 pg (28.0-34.0) 06/27/22 13:00 MCHC 33.4 g/dL (30.0-36.0) 06/27/22 13:00 RDW 13.1 % (12.1-15.1) 06/27/22 13:00 Plt Count 136 10^3/cmm (130-400) 06/27/22 13:00 MPV 9.6 fL (7.4-10.4) 06/27/22 13:00 Neut % (Auto) 81.5 % 06/27/22 13:00 Lymph % (Auto) 8.2 % 06/27/22 13:00 Coke % (Auto) 7.4 % 06/27/22 13:00 Eos % (Auto) 2.3 % 06/27/22 13:00 Baso % (Auto) 0.4 % 06/27/22 13:00 Neut # (Auto) 6.87 10^3/uL (1.8-7.7) 06/27/22 13:00 Lymph # (Auto) 0.7 10^3/uL (0.8-4.8) L 06/27/22 13:00 Coke # (Auto) 0.6 10^3/uL (0.2-0.9) 06/27/22 13:00 Eos # (Auto) 0.2 10^3/uL (0.0-0.8) 06/27/22 13:00 Baso # (Auto) 0.0 10^3/uL (0.0-0.1) 06/27/22 13:00 Nucleated RBC % (auto) 0 % 06/27/22 13:00 Nucleated RBCs # 0.0 /100WBC 06/27/22 13:00 PT 12.80 SECONDS (12.1-14.9) 06/27/22 13:00 INR 0.94 (0.8-1.2) 06/27/22 13:00 APTT 26.9 SECONDS (23.9-36.7) 06/27/22 13:00 Sodium 143 mmol/L (136-145) 06/27/22 13:00 Potassium 4.4 mmol/L (3.5-5.1) 06/27/22 13:00 Chloride 105 mmol/L (98-107) 06/27/22 13:00 Carbon Dioxide 28 mmol/L (22-29) 06/27/22 13:00 Anion Gap 14.4 (5-19) 06/27/22 13:00 BUN 14 mg/dL (8-23) 06/27/22 13:00 Creatinine 0.9 mg/dL (0.5-0.9) 06/27/22 13:00 GFR Calculation 62.1 mL/min (90-130) L 06/27/22 13:00 Glucose 108 mg/dL (65-115) 06/27/22 13:00 Calculated Osmolality 297 mOsm/kg (285-295) H 06/27/22 13:00 Calcium 9.4 mg/dL (8.5-10.5) 06/27/22 13:00 Urine Color Yellow (Yellow) 06/27/22 14:30 Urine Appearance Clear (CLEAR) 06/27/22 14:30 Urine pH 6 (5-7) 06/27/22 14:30 Ur Specific [place] 1.005 (1.005-1.030) 06/27/22 14:30 Urine Protein Neg (Negative) 06/27/22 14:30 Urine Glucose (UA) Norm (Normal) 06/27/22 14:30 Urine Ketones Negative (Negative) 06/27/22 14:30 Urine Blood 2+ (Negative) H 06/27/22 14:30 Urine Nitrate Negative (Negative) 06/27/22 14:30 Urine Bilirubin Neg (Negative) 06/27/22 14:30 Urine Urobilinogen Norm mg/dL (Negative) 06/27/22 14:30 Ur Leukocyte Esterase Negative (Negative) 06/27/22 14:30 Urine RBC 0-4 /hpf (0-2) H 06/27/22 14:30 Urine WBC 5-10 /hpf (0-5) H 06/27/22 14:30 Ur Squamous Epith Cells 0-4 /hpf (0-5) H 06/27/22 14:30 Amorphous Sediment Not Reportable 06/27/22 14:30 Urine Bacteria Trace /hpf (NONE) 06/27/22 14:30 Discharge Plan Discharge Patient Disposition: Home Clinical Impression: Colitis, Hypothyroid, Colorectal cancer, Parastomal hernia Prescriptions: New ciprofloxacin HCl 500 mg tablet 500 mg PO BID Qty: 20 0RF promethazine 25 mg tablet 25 mg PO Q6H PRN (Reason: nausea and vomiting) Qty: 20 0RF No Action propranolol 40 mg tablet 40 mg PO BID levothyroxine 50 mcg tablet 50 mcg PO DAILY loratadine 10 mg Tablet 10 mg PO BEDTIME Discharge Orders: Discharge ED (Routine); Ordered 06/27/22 Ordered By: Mook Tan Referrals: Yaquelin Hutson MD [Primary Care Provider] - Discharge Diet: Clear Liquid Patient Instructions: Opioid Safety Activity Restrictions/Additional Instructions: Recheck hemoglobin tomorrow with your primary care doctor. If bleeding worsens significantly return to the emergency room. Coding Level of Care Code ED [employer] Worker for Luis Manuel Ribeiro
--- NOTE | 2022-06-27 12:47 | CT_ITS ---
WS: [id number] CT ABDOMEN PELVIS TECHNIQUE: Contrast-enhanced CT of the abdomen and pelvis with coronal and sagittal reformatted image s. CLINICAL INFORMATION: abd pain COMPARISON: December 14, 2020 DLP: 643.[address] scans at [facility] use at least one of these dose optimization techniques: automated e xposure control; mA and/or kV adjustment per patient size (includes targeted exams where dose is matc hed to clinical indication); or iterative reconstruction. FINDINGS: Prior postoperative changes LEFT lower quadrant colostomy with parastomal hernia. Postoperative pack es. resection for rectal cancer. Diffuse fatty infiltration liver. Normal gallbladder. Normal portal vein and splenic vein. Normal spleen. Normal GE junction. Normal duodenal C-loop. Urine distended bladder. Subsegmental atelectasis lung bases. Adrenal glands are normal. Normal renal parenchymal enhancement. No hydronephrosis. Normal spleen. Normal caliber abdominal aorta. No periao rtic lymphadenopathy. No inguinal lymphadenopathy. No pelvic lymphadenopathy. Celiac and SMA are beth nt. Diffuse colonic thickening with transmural edema involving the colon segment extending into the olga tomal hernia. No evidence of high-grade obstruction. Findings suspicious for infectious/inflammatory or ischemic colitis. Distal colostomy appears normal and decompressed. Recommend correlation with are a of pain. No drainable fluid collections. Tiny fat-containing umbilical hernia. CT/CT abdomen pelvis w con* [id number] IMPRESSION: 1. Diffuse transmural edema with surrounding inflammatory stranding and sub mu cosal enhancement involving the LEFT lower quadrant colonic parastomal hernia. No evidence of high-grade obstruction at the distal colostomy. Findings suspici ous for infectious/ inflammatory or ischemic colitis. No pneumatosis or free ai r. 2. The configuration of the LEFT lower quadrant colostomy with parastomal megha ia is otherwise unchanged in appearance since November 24, 2020 3. Normal caliber abdominal aorta. Celiac, SMA and proximal SONIA are patent. 4. Diffuse fatty infiltration liver. 5. No other remarkable changes compared to previous examinations. Discussed with Mook Tan DO at 06/27/2022 2:43 PM.
[2022-06-27 13:05] LABS: Basophils % 0.4 %; Eosinophils # 0.2 10^3/uL (0.0-0.8); Eosinophils % 2.3 %; Hematocrit 41.9 % (37.0-47.0); Lymphocytes # 0.7 10^3/uL (0.8-4.8); Lymphocytes % 8.2 %; Mean Corpuscular HGB Conc 33.4 g/dL (30.0-36.0); Mean Corpuscular Hemoglobin 31.3 pg (28.0-34.0); Mean Corpuscular Volume 93.5 fl (81-99); Mean Platelet Volume 9.6 fL (7.4-10.4); Monocytes # 0.6 10^3/uL (0.2-0.9); Monocytes % 7.4 %; Neutrophils # 6.87 10^3/uL (1.8-7.7); Neutrophils % 81.5 %; Nucleated Red Blood Cells % 0 %; Platelet Count 136 10^3/cmm (130-400); Red Blood Count 4.48 10^6/uL (4.1-5.3); Red Cell Distribution Width 13.1 % (12.1-15.1); White Blood Count 8.4 10^3/uL (4.0-10.0)
[2022-06-27 13:24] LABS: INR 0.94 (0.8-1.2); Partial Thromboplastin Time 26.9 SECONDS (23.9-36.7)
[2022-06-27 13:28] LABS: Anion Gap 14.4 (5-19); Blood Urea Nitrogen 14 mg/dL (8-23); Calcium 9.4 mg/dL (8.5-10.5); Carbon Dioxide 28 mmol/L (22-29); Chloride 105 mmol/L (98-107); Glomerular Filtration Rate 62.1 mL/min (90-130); Glucose 108 mg/dL (65-115); Osmolality Calculated 297 mOsm/kg (285-295); Potassium 4.4 mmol/L (3.5-5.1); Sodium 143 mmol/L (136-145)
--- NOTE | 2022-06-27 13:43 | PC.NURSE ---
pt reports right red blood is coming out of colostomy, beginning around 2200 last night. denies any improvement or worsening today. Reports mild lower abdominal pain. Denies complaints or fevers.
[2022-06-27] MEDS: diphenhydrAMINE 50 mg/mL SDV 1mL IVP (13:57)
[2022-06-27 14:00] VITALS: BP 117/62; PULSE 59
[2022-06-27] MEDS: iohexol 350 mg/mL 100 mL Btl IV (14:21)
[2022-06-27 14:34] VITALS: O2SAT 99
[2022-06-27 14:45] VITALS: O2SAT 95
[2022-06-27 14:47] LABS: Add Urine Microscopic? YES; Bilirubin Urine Neg (Negative); Blood Urine 2+ (Negative); Glucose Urine UA Norm (Normal); Ketones Urine Negative (Negative); Leukocyte Esterase Urine Negative (Negative); Nitrate Urine Negative (Negative); Protein Urine Neg (Negative); Specific Gravity, Urine 1.005 (1.005-1.030); Urine Appearance Clear (CLEAR); Urine Color Yellow (Yellow); Urobilinogen Urine Norm (Negative); pH Urine 6 (5-7)
[2022-06-27 14:54] LABS: Add Urine Culture? No; Bacteria Urine TRACE /hpf; RBC Urine 0-4 /hpf (0-2); Squamous Epithelial Cell Urine 0-4 /hpf (0-5)
[2022-06-27 15:00] VITALS: O2SAT 100
[2022-06-27 15:14] VITALS: BP 138/67; PULSE 60; RESP 18; O2SAT 97
== END 2022-06-27 15:15 | disposition home or self-care (01) ==
PROVIDERS: Emergency Provider Family Medicine; PCP Family Medicine
DX: K52.9 Noninfective gastroenteritis and colitis, unspecified (principal); E03.9 Hypothyroidism, unspecified; C19 Malignant neoplasm of rectosigmoid junction; K43.5 Parastomal hernia without obstruction or gangrene
CPT/HCPCS: 36415; 74177; 80048; 81001; 85025; 85610; 85730; 96374; 96375; 99285; J1200; J2920; Q9967

== ENCOUNTER 2022-07-13 13:57 | Outpatient (CLI) | payer OTHER, MEDICARE, SELFPAY ==
--- NOTE | 2022-07-13 14:05 | MM_ITS ---
WS: [id number] BILATERAL SCREENING DIGITAL TOMOSYNTHESIS MAMMOGRAM WITH CAD HISTORY: SCREEN COMPARISON: 07/12/2021 and 07/09/2020 Bilateral CC and MLO views with tomosynthesis and synthetic mammography submitted. Computer aided det ection analyzed. Breast composition: There are scattered areas of fibroglandular density. No suspicious masses, microc alcifications or architectural distortion. Benign calcifications in each breast. Stable asymmetries i n the upper outer quadrants of each breast. MM/[place] [id number] IMPRESSION: BI-RADS: 2-Benign FOLLOW UP: 1 Year Follow-up
== END 2022-07-13 13:58 | disposition home or self-care (01) ==
LOC: RAD 14:01
PROVIDERS: PCP Family Medicine; Visit Provider Family Medicine
DX: Z12.31 Encounter for screening mammogram for malignant neoplasm of breast (principal)
CPT/HCPCS: 77063; 77067

== ENCOUNTER 2023-09-19 14:11 | Outpatient (CLI) | payer MEDICARE, SELFPAY ==
--- NOTE | 2023-09-19 14:19 | MM_ITS ---
WS: [id number] BILATERAL 3D TOMOSYNTHESIS DIGITAL SCREENING MAMMOGRAPHY WITH CAD CLINICAL INFORMATION: SCREENING HISTORY: Screening mammogram. No current complaints. COMPARISON: 2021 TECHNIQUE: Bilateral CC and MLO views. FINDINGS: Scattered fibroglandular densities bilaterally. No suspicious focal mass, asymmetry, calcifications, or architectural distortion. No evidence of malignancy. Incidental punctate and lucent centered calci fications. Vascular calcification. IMPRESSION: MM/[place] [id number] BI-RADS: 2-Benign FOLLOW UP: 1 Year Follow-up Recommend return to annual screening mammography.
== END 2023-09-19 14:12 | disposition home or self-care (01) ==
LOC: RAD 14:11
PROVIDERS: PCP Family Medicine; Visit Provider Family Medicine
DX: Z12.31 Encounter for screening mammogram for malignant neoplasm of breast (principal)
CPT/HCPCS: 77063; 77067

== ENCOUNTER 2024-09-29 12:05 | Outpatient (CLI) | payer MEDICARE, SELFPAY ==
--- NOTE | 2024-09-29 12:09 | XR_ITS ---
WS: [id number] Exam: XR chest 2V* [id number] Date/Time of Exam: 09/29/2024 12:12 PM Reason For Exam: cough X 1 yr Comparison 05/24/2015. Lungs are fully inflated and clear. Normal cardiomediastinal silhouette. Regional bony structures perry ear normal. Mild spondylosis of the T-spine. XR/XR chest 2V* [id number] IMPRESSION: 1. Negative chest.
== END 2024-09-29 12:06 | disposition home or self-care (01) ==
LOC: RAD 12:07
PROVIDERS: PCP Family Medicine; Visit Provider Family Medicine
DX: R05.3 Chronic cough (principal)
CPT/HCPCS: 71046

== ENCOUNTER → 2024-12-01 09:44 | Outpatient (BNVA) | payer MEDICARE, SELFPAY | PROVIDERS: PCP Family Medicine; Visit Provider Family Medicine | DX: E03.9 Hypothyroidism, unspecified (principal); E78.2 Mixed hyperlipidemia; K76.0 Fatty (change of) liver, not elsewhere classified; I34.1 Nonrheumatic mitral (valve) prolapse; C19 Malignant neoplasm of rectosigmoid junction; Z00.00 Encounter for general adult medical examination without abnormal findings | CPT/HCPCS: 80053; 80061; 82378; 84439; 84443; 85025 ==

== ENCOUNTER 2024-12-15 10:59 | Outpatient (CLI) | payer MEDICARE, SELFPAY ==
--- NOTE | 2024-12-15 11:01 | MM_ITS ---
WS: [id number] BILATERAL SCREENING DIGITAL TOMOSYNTHESIS MAMMOGRAM WITH CAD HISTORY: screening COMPARISON: 09/09/2023, 07/13/2022 Bilateral CC and MLO views with tomosynthesis and synthetic mammography submitted. Computer aided detection analyzed. Breast composition: There are scattered areas of fibroglandular density. No suspicious masses, microcalcifications or architectural distortion. Benign calcifications in each breast. MM/MM scr BI tomosynthesis [id number] IMPRESSION: BI-RADS: 2 - Benign. FOLLOW UP: 1 Year Follow-up
== END 2024-12-15 11:00 | disposition home or self-care (01) ==
LOC: RAD 11:00
PROVIDERS: PCP Family Medicine; Visit Provider Family Medicine
DX: Z12.39 Encounter for other screening for malignant neoplasm of breast (principal); Z12.31 Encounter for screening mammogram for malignant neoplasm of breast; R92.323 Mammographic fibroglandular density, bilateral breasts; R92.1 Mammographic calcification found on diagnostic imaging of breast
CPT/HCPCS: 77063; 77067